=== PATIENT | female | born 2000 | race Two or more races ===

== ENCOUNTER 2023-05-17 23:12 | Emergency (ER) | payer MEDICAID ==
[~2023-05-17] VITALS: Ht 172.7 cm; Wt 81.0 kg
[2023-05-17 23:13] VITALS: TEMP 98.7
[2023-05-17 23:30] VITALS: BP 123/81; PULSE 80; RESP 15
[2023-05-18] MEDS ORDERED: TraMADol HCL 50 MG TABLET PO ONE (01:15)
[2023-05-18] MEDS ORDERED: FLUORESCEIN SODIUM 1 MG STRIP OD ONE (01:15)
[2023-05-18] MEDS ORDERED: PredniSONE 20 MG TABLET PO ONE (01:15)
[2023-05-18] MEDS ORDERED: POLY30DR OD (01:22)
[2023-05-18] MEDS ORDERED: PRED-554 PO (01:22)
== END 2023-05-18 02:07 | disposition home or self-care (01) ==
LOC: EMS 23:14
DX: H15.001 Unspecified scleritis, right eye (principal); H15.101 Unspecified episcleritis, right eye
CPT/HCPCS: 99283; J7512